=== PATIENT | female | born 1975 | race Two or more races ===

== ENCOUNTER → 2020-03-13 10:41 | Outpatient (CLI) | payer OTHER, SELFPAY ==
--- NOTE | ~2020-03-13 | MM_ITS ---
EXAMINATION: MM screening marlene BI w lloyd HISTORY: Screening mammogram TECHNIQUE: Craniocaudal and mediolateral oblique 3-D tomosynthesis images were obtained and synthetic 2-D images were generated. CAD analysis was submitted and interpreted. COMPARISON: No prior mammogram is available for comparison at this institution. BREAST PARENCHYMAL COMPOSITION: The breasts are extremely dense, which lowers the sensitivity of mamm ography. FINDINGS: Occasional bilateral punctate benign microcalcifications. There is no evidence of suspiciou s mass, calcification, or architectural distortion to suggest malignancy in either breast. There has been no suspicious interval change. IMPRESSION: 1. No mammographic evidence of malignancy. 2. Recommend routine screening mammography in one year. BI-RADS Category 2: Benign finding(s). Reviewed, dictated and finalized at location A. ET PROTECTION SPECIALIST
== END ==
PROVIDERS: Visit Provider Nurse Practitioner Family
DX: Z12.31 Encounter for screening mammogram for malignant neoplasm of breast (principal)
CPT/HCPCS: 77063; 77067

== ENCOUNTER → 2021-06-19 12:07 | Outpatient (CLI) | payer OTHER, SELFPAY ==
--- NOTE | ~2021-06-19 | MM_ITS ---
EXAMINATION: MM screening marlene BI w lloyd HISTORY: Screening mammogram TECHNIQUE: Craniocaudal and mediolateral oblique 3-D tomosynthesis images were obtained and synthetic 2-D images were generated. CAD analysis was submitted and interpreted. COMPARISON: 03/13/2020 BREAST PARENCHYMAL COMPOSITION: The breasts are extremely dense, which lowers the sensitivity of mamm ography. FINDINGS: There is no suspicious mass, calcification, or architectural distortion to suggest malignan cy in either breast. There has been no suspicious interval change. IMPRESSION: 1. No mammographic evidence of malignancy. 2. Recommend routine screening mammography in one year. BI-RADS Category 1: Negative Reviewed, dictated and finalized at location A.
== END ==
PROVIDERS: PCP Nurse Practitioner Family; Visit Provider Nurse Practitioner Family
DX: Z12.31 Encounter for screening mammogram for malignant neoplasm of breast (principal)
CPT/HCPCS: 77063; 77067

== ENCOUNTER → 2022-06-26 14:51 | Outpatient (CLI) | payer OTHER, SELFPAY ==
--- NOTE | ~2022-06-26 | MM_ITS ---
EXAMINATION: MM screening marlene BI w lloyd HISTORY: Screening mammogram TECHNIQUE: Craniocaudal and mediolateral oblique 3-D tomosynthesis images were obtained and synthetic 2-D images were generated. CAD analysis was submitted and interpreted. COMPARISON: 06/19/2021, 03/13/2020 bilateral screening mammogram examinations BREAST PARENCHYMAL COMPOSITION: The breasts are extremely dense, which lowers the sensitivity of mamm ography. FINDINGS: Scattered bilateral subtle microcalcifications. Bilateral diagnostic mammogram with magnifi cation views is recommended. Extremely dense stroma limits the sensitivity of mammography. Consider bilateral complete breast ultr asound examination for more definitive evaluation. IMPRESSION: 1. Scattered bilateral microcalcifications and very dense stroma 2. Bilateral diagnostic mammography with magnification views and bilateral complete breast ultrasound examination are recommended BI-RADS Category 0: Incomplete: Needs additional imaging evaluation. Reviewed, dictated and finalized at location A. IMPRESSION: 1. Scattered bilateral microcalcifications and very dense stroma 2. Bilateral diagnostic mammography with magnification views and bilateral comp lete breast ultrasound examination are recommended BI-RADS Category 0: Incomplete: Needs additional imaging evaluation.
== END ==
PROVIDERS: PCP Nurse Practitioner Family; Visit Provider Nurse Practitioner Family
DX: Z12.31 Encounter for screening mammogram for malignant neoplasm of breast (principal); R92.8 Other abnormal and inconclusive findings on diagnostic imaging of breast
CPT/HCPCS: 77063; 77067

== ENCOUNTER → 2022-08-02 07:51 | Outpatient (CLI) | payer OTHER, SELFPAY ==
--- NOTE | ~2022-08-02 | MM_ITS ---
EXAMINATION: MM diagnostic mammo BI HISTORY: Bilateral breast calcifications on screening mammogram TECHNIQUE: Additional views of the breasts were performed. CAD analysis was submitted and interpreted . COMPARISON: 06/26/2022, 06/19/2021, 03/13/2020 FINDINGS: No definite grouped right breast calcifications are identified with magnification views. Ca lcifications in the anterior third of the left breast have a morphology consistent with milk of calci um. There are grouped calcifications in the anterior third of the lower-outer breast at the 7:00 loca tion 7 cm from the nipple which are too small and few in number to characterize but appear to be roun d. IMPRESSION: 1. Probably benign calcifications of the lower inner left breast. 2. Recommend 6 month follow-up left diagnostic mammogram. BI-RADS category 3, probably benign findings. Reviewed, dictated and finalized at location A.
== END ==
PROVIDERS: PCP Nurse Practitioner Family; Visit Provider Nurse Practitioner Family
DX: R92.1 Mammographic calcification found on diagnostic imaging of breast (principal)
CPT/HCPCS: 77066

== ENCOUNTER → 2023-02-21 07:47 | Outpatient (CLI) | payer OTHER, SELFPAY ==
--- NOTE | ~2023-02-21 | US_ITS ---
US breast LT complete DATE: 02/21/2023 10:34 INDICATION: Extremely dense breast tissue TECHNIQUE: Real-time and color flow imaging of complete left breast including all 4 quadrants and sub areolar area COMPARISON: 02/21/2023 diagnostic left mammogram 08/02/2022 diagnostic mammogram 06/26/2022 2 bilateral screening mammogram FINDINGS: Please refer to combined 02/21/2023 diagnostic left mammogram and left complete breast ultra sound report IMPRESSION: BI-RADS Category 2: Benign Reviewed, dictated and finalized at Location A. Reviewed, dictated and finalized at location A. R CLEANER IMPRESSION: BI-RADS Category 2: Benign
--- NOTE | ~2023-02-21 | MM_ITS ---
EXAMINATION: MM diagnostic marlene LT w lloyd HISTORY: Probably benign calcifications in the lower inner left breast reported on 08/02/2022 diagnost ic mammogram; six-month follow-up TECHNIQUE: ML, MLO and CC 3-D tomosynthesis images of the left breast were performed and synthetic 2- D images were generated. Magnification views of left breast in ML and CC projections. CAD analysis wa s submitted and interpreted. High resolution complete left breast ultrasound examination including al l 4 quadrants and subareolar area was performed. COMPARISON: 08/02/2022 diagnostic mammogram /07/2022, 06/19/2021, 03/13/2020 bilateral screening mammogram examinations BREAST PARENCHYMAL COMPOSITION: The breasts are extremely dense, which lowers the sensitivity of mamm ography. FINDINGS: MAMMOGRAPHIC FINDINGS: There are scattered solitary grouped calcifications without apparent malignant features. No suspicious mass or architectural distortion, skin thickening or retraction is detected. There is extremely dense fibroglandular stroma which may obscure masses. Complete ultrasound examinat ion therefore was performed. ULTRASOUND: 1:00 3 cm from nipple: Parallel circumscribed approximately 2.8 x 6.5 x 6.7 mm hypoechoic lesion with through transmission, some internal vascularity. The sonographic features suggest benign process, li analilia benign lymph node. 1:00 6 cm from nipple: 2.7 x 4.1 x 5 mm parallel circumscribed hypoechoic lesion without internal vas cularity or posterior shadowing, benign in appearance No suspicious mass or shadowing is detected. IMPRESSION: 1. Benign findings 2. Routine annual mammographic screening is recommended BI-RADS Category 2: Benign finding(s). Reviewed, dictated and finalized at location A. CTOR CASE MANAGEMENT
== END ==
PROVIDERS: PCP Nurse Practitioner Family; Visit Provider Nurse Practitioner Family
DX: R92.8 Other abnormal and inconclusive findings on diagnostic imaging of breast (principal)
CPT/HCPCS: 76641; 77061; 77065; G0279